=== PATIENT | male | born 1960 | race Native Hawaiian/Other Pacific Islander ===

== ENCOUNTER → 2017-01-20 | Outpatient (CLI) | payer MEDICARE, MEDICAID ==
[~2017-01-20] MED LIST: ASPIRIN EC325 MG PO; CITALOPRAM HBR10 MG PO; CRESTOR5 MG PO; PEPCID20 MG PO; SYNTHROID DPS0.05 MG PO; TOPROL XL25 MG PO; ZYLOPRIM300 MG PO
== END | disposition home or self-care (01) ==
LOC: RAD.S 10:14
DX: M54.5 Low back pain (principal); M25.50 Pain in unspecified joint; M51.37 Other intervertebral disc degeneration, lumbosacral region; M47.816 Spondylosis without myelopathy or radiculopathy, lumbar region

== ENCOUNTER 2017-02-04 08:23 | Day surgery (SDC) | payer MEDICARE, MEDICAID ==
[~2017-02-04] VITALS: Ht 180.3 cm
--- NOTE | 2017-02-06 08:02 | OR ---
ADMIT: 02/04/2017 RM/LOC: [facility] MR#: [id number] [address] LUCHO RICK PATYDARIUS [address] [facility] [address] [place] [address] Operative/Delivery Room Report SEX: M AGE: 56 : 1960 SURGERY DATE: 02/04/2017 SURGEON: Jasmyn Jj MD STRAIGHTENING MACHINE FEEDER: None. PREPROCEDURE DIAGNOSES: 1. Lumbar disc degeneration. 2. Lumbosacral neuritis. 3. Chronic low back pain. POSTPROCEDURE DIAGNOSES: 1. Lumbar disc degeneration. 2. Lumbosacral neuritis. 3. Chronic low back pain. PROCEDURE PERFORMED: L5-S1 interlaminar epidural steroid injection. INDICATIONS FOR PROCEDURE: The patient is a pleasant gentleman with history of chronic low back pain with radicular symptoms, comes here for planned lumbar epidural steroid injection. ANESTHESIA: Local without sedation. ESTIMATED BLOOD LOSS: Zero. COMPLICATIONS: None immediately evident. DESCRIPTION OF PROCEDURE: After the patient was seen in the preoperative area, vitals signs were taken. Prior to the procedure, the risks, benefits, and alternative therapies were discussed at length. Patient consent was obtained and updated. The patient was taken to the fluoroscopy suite and placed on the fluoroscopy table in the prone position. Pressure points were padded to comfort, monitors applied, and a timeout performed. Fluoroscopy was brought in. The patient was sterilely prepped and draped in the usual manner with ChloraPrep solution, and 1% lidocaine was used to anesthetize the appropriate needle entry site. Utilizing a midline approach, ADMIT: 02/04/2017 RM/LOC: [facility] MR#: [id number] [address] RICK MILLER [address] [place] [address] Operative/Delivery Room Report SEX: M AGE: 56 : 1960 continuous loss of resistance technique with preservative-free normal saline and intermittent fluoroscopic guidance, the posterior epidural space was easily entered. Once the epidural space had been entered through L5-S1 the patient was injected with 2 mL of Isovue-300 and outlining of the posterior epidural space was observed with no evidence of vascular uptake and intrathecal migration. Next, a solution consisting of 10 mL of preservative- free normal saline and 80 mg of Depo-Medrol was injected. The needle was withdrawn. The patient was escorted back to the preoperative area and observed for a period of time. PLAN: Discharge instructions were given, followup scheduled. The patient was discharged home with a charter bus driver. Jasmyn Jj MD/ donis JOB #: [id number] CC: Jasmyn Jj, Attending Physician Zoila Peters, Family Physician
== END 2017-02-04 09:58 | disposition home or self-care (01) ==
LOC: SSS 08:23
PROC: 3E0R33Z Introduction of Anti-inflammatory into Spinal Canal, Percutaneous Approach (ICD-10-PCS; principal; 2017-02-04)
DX: G89.29 Other chronic pain (principal); M51.17 Intervertebral disc disorders with radiculopathy, lumbosacral region; F41.9 Anxiety disorder, unspecified; F32.9 Major depressive disorder, single episode, unspecified; I10 Essential (primary) hypertension; M19.90 Unspecified osteoarthritis, unspecified site; F17.200 Nicotine dependence, unspecified, uncomplicated; Z79.82 Long term (current) use of aspirin; Z79.899 Other long term (current) drug therapy; Z98.890 Other specified postprocedural states